=== PATIENT | male | born 1980 | race Caucasian/White ===

== ENCOUNTER 2023-06-17 16:38 | Emergency (ER) | payer BC, SELFPAY ==
[2023-06-17 16:40] VITALS: BP 132/80; PULSE 82; RESP 16; TEMP 36.7; O2SAT 96; BMI 24.4
--- NOTE | 2023-06-17 16:46 | EX.ED.DYSGE1 ---
HPI <LEILANI Phelan - Last Filed: 06/17/23 18:53> History of Present Illness Chief Complaint: Allergic Reaction Narrative Narrative: Patient states he swatted at a fly but it stung him on his left hand so he thinks it was hornet. This was at 1:45 pm. His hand started to swell up and he developed hives all over. Paramedics administered 0.3 mg EpiPen and 50 mg Benadryl. Patient also took [id number] Kati. He denies history of anaphylaxis but states he was stung on his foot before it did swell significantly. He denies chest pain or difficulty breathing. No GI symptoms. PFSH <LEILANI Phelan Last Filed: 06/17/23 18:53> [facility] Medical History no medical history Home Medications epinephrine 0.3 mg/0.3 mL injection, auto-injector 0.3 mg (0.3 mL) IM Q10M PRN PRN anaphylaxis #2 ea 06/17/23 [Rx Last Taken Unknown] Allergy/AdvReac Type Severity Reaction Status Date / Time bee venom protein (honey bee) Allergy Severe SWELLING Verified 06/17/23 16:39 Surgical History no surgical history Social History Smoking Status: Unknown if ever smoked ROS <LEILANI Phelan Last Filed: 06/17/23 18:53> ROS ED ROS Narrative Constitutional: Negative for fever, chills, malaise. CVS: Negative for palpitations, chest pain, syncope. Respiratory: Negative for shortness of breath. GI: Negative for abdominal pain, nausea, vomiting, diarrhea. Skin: Positive for rash. EXAM <LEILANI Phelan Last Filed: 06/17/23 18:53> Physical Exam Narrative Exam Narrative: CONST: Patient sitting in no acute distress. EYES: Normal inspection. ENT: Normal inspection, moist mucous membranes. No angioedema, airway patent. NECK: Normal inspection. RESP: No respiratory distress, CTAB. CVS: Regular rate and rhythm, no murmur, no gallop. SKIN: Scattered maculopapular rash across chest and extremities. EXTREMITIES: Normal appearance, no pedal edema. NEURO: Oriented x4. PSYCH: Normal affect. Const Vital Signs: 06/17/23 16:40 06/17/23 16:57 06/17/23 17:05 Temperature 98.1 F Temperature Source Oral Pulse Rate 82 75 Respiratory Rate 16 16 16 Blood Pressure 132/80 H 137/83 H 138/76 H Blood Pressure Mean 97 101 96 Pulse Ox 96 95 Oxygen Delivery Method Room Air Room Air 06/17/23 17:17 06/17/23 18:45 Temperature Temperature Source Pulse Rate Respiratory Rate 16 Blood Pressure 118/77 Blood Pressure Mean 90 Pulse Ox Oxygen Delivery Method <Dr. Herbie Cardozo MD - Last Filed: 06/17/23 20:50> Physical Exam Const Vital Signs: 06/17/23 16:40 06/17/23 16:57 06/17/23 17:05 Temperature 98.1 F Temperature Source Oral Pulse Rate 82 75 Respiratory Rate 16 16 16 Blood Pressure 132/80 H 137/83 H 138/76 H Blood Pressure Mean 97 101 96 Pulse Ox 96 95 Oxygen Delivery Method Room Air Room Air 06/17/23 17:17 06/17/23 18:45 Temperature Temperature Source Pulse Rate Respiratory Rate 16 Blood Pressure 118/77 Blood Pressure Mean 90 Pulse Ox Oxygen Delivery Method MDM <LEILANI Phelan - Last Filed: 06/17/23 18:53> [facility] Narrative Medical decision making narrative: History gathered from patient and paramedics Patient was stung by a hornet on his left hand has significant left hand swelling and diffuse urticaria. He told paramedics his throat felt tight and was given epinephrine and Benadryl prior to arrival. He appears in no distress. Vital signs stable. He does have a rash and left hand swelling but no other abnormalities on exam. He was given p.o. prednisone and Pepcid and monitored for 2 hours. Remained stable and his rash is actually improved a little. I prescribed an EpiPen to keep on hand and recommended using Benadryl as needed. He was discharged in stable condition. Differential: allergic reaction, anaphylaxis <Dr. Herbie Cardozo MD - Last Filed: 06/17/23 20:50> [facility] Narrative Medical decision making narrative: History gathered from patient and paramedics Patient was stung by a hornet on his left hand has significant left hand swelling and diffuse urticaria. He told paramedics his throat felt tight and was given epinephrine and Benadryl prior to arrival. He appears in no distress. Vital signs stable. He does have a rash and left hand swelling but no other abnormalities on exam. He was given p.o. prednisone and Pepcid and monitored for 2 hours. Remained stable and his rash is actually improved a little. I prescribed an EpiPen to keep on hand and recommended using Benadryl as needed. He was discharged in stable condition. Differential: allergic reaction, anaphylaxis I have personally performed a face to face assessment of the patient and have reviewed the MARIAH Note. I performed a substantive portion of the visit including all aspects of the following. 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 He states he was in bed and mated a month ago right foot. Today he was stung left hand. He noted #on his feet and legs and then developed nausea and throat swelling. He was seen at urgent care. He received epinephrine at the urgent care. He was sent here for further observation. Upon arrival his left hand is swollen. There is no neurovascular compromise. He also has hives. His voice is slightly hoarse. He has no other symptoms or complaint Exam is generalized hives with local swelling to left hand after hymenoptera envenomation. Patient's voice is slightly hoarse. Trachea is midline. There is no in-store extra stridor. There is symmetric breath sounds noted with no expiratory wheezing. Heart is regular without murmur, gallop or rub. Abdomen is benign. Medical Decision Making patient was observed for over 2 hours. He was discharged home with prescription for EpiPen. He was instructed to carry 1 with him at all times. He cannot leave it in his car since the heat will degradation the medication. Other additions or changes: [None] Discharge Plan Triage Chief Complaint: Allergic Reaction ED Midlevel Provider: Radha Pedro ED Provider: Herbie Cardozo Dx/Rx/DC Orders Clinical Impression: Allergic reaction to wasp sting Instructions: ED BEE STING General Allergic Rxn Prescriptions: New epinephrine 0.3 mg/0.3 mL auto-injector 0.3 mg IM Q10M PRN PRN (Reason: anaphylaxis) Qty: 2 0RF Rx Instructions: for 2 doses Primary Care Provider: Care Physician,No Primary Referrals: Care Physician,No Primary [Primary Care Provider] - Activity Restrictions/Additional Instructions: Take Benadryl as needed every 6 hours for rash or itching. Keep epi-pen on you and use if you have a severe allergic reaction and then come to the emergency room. Disposition Disposition: Home, Self Care Discharge Date/Time: 06/17/23 18:46
[2023-06-17] MEDS: Famotidine 20 MG Tablet PO (16:54)
[2023-06-17] MEDS: predniSONE 20 MG Tablet 60 MG PO (16:54)
[2023-06-17 16:57] VITALS: BP 137/83; RESP 16
[2023-06-17 17:05] VITALS: BP 138/76; PULSE 75; RESP 16; O2SAT 95
[2023-06-17 17:17] VITALS: BP 118/77
[2023-06-17 18:45] VITALS: RESP 16
== END 2023-06-17 18:46 | disposition home or self-care (01) ==
PROVIDERS: Emergency Provider Emergency Medicine; Visit Provider Emergency Medicine
DX: T63.454A Toxic effect of venom of hornets, undetermined, initial encounter (principal); M79.89 Other specified soft tissue disorders
CPT/HCPCS: 99285